=== PATIENT | female | born 1965 | race Caucasian/White ===

== ENCOUNTER 2016-05-12 04:47 | Emergency (ER) | payer BC, OTHER ==
[~2016-05-12 04:47] MED LIST: ACET500CAP PO; ALAVERT10 MG PO; AMB10 PO; ATV1 PO; AUG875 PO; COMBIVENT RESPIM4 GM INH; DIL2TAB PO; DURA25 TOP; KLONO1 PO; KLONO5 PO; LEVAQUIN750 MG PO; LEXAPRO10 PO; LIOR10 PO; METHOC750B PO; NEXIUM40 PO; NICODERM C21 MG/241 TOP; NORCO1 TAB PO; PR12.5 PO; PRED50B PO; PROAIR HFA INH; Z300 PO; ZOFRAN4 PO; [UNRECOGNIZED DRUG - REMARK] IV
== END 2016-05-12 05:41 | disposition home or self-care (01) ==
LOC: ER 04:47
PROC: 0HDQXZZ Extraction of Finger Nail, External Approach (ICD-10-PCS; principal; 2016-05-12)
DX: S62.633A Displaced fracture of distal phalanx of left middle finger, initial encounter for closed fracture (principal); S61.313A Laceration without foreign body of left middle finger with damage to nail, initial encounter; J44.9 Chronic obstructive pulmonary disease, unspecified; F32.9 Major depressive disorder, single episode, unspecified; F41.9 Anxiety disorder, unspecified; Z87.01 Personal history of pneumonia (recurrent); Z88.8 Allergy status to other drugs, medicaments and biological substances; Z91.040 Latex allergy status; Z79.899 Other long term (current) drug therapy; W23.0XXA Caught, crushed, jammed, or pinched between moving objects, initial encounter
CPT/HCPCS: 73140-LT; 90471; 90714; 99283